=== PATIENT | female | born 1960 | race Caucasian/White ===

== ENCOUNTER 2016-11-08 13:14 | Emergency (ER) | payer OTHER ==
[~2016-11-08] VITALS: Ht 160 cm; Wt 67.5 kg
[~2016-11-08 13:14] MED LIST: ALPRAZOLAM0.5 M1 PO; AMOXICILLIN500 MG PO; BENICAR HCT 401 EACH PO; BYSTOLIC20 MG PO; CARISOPRODOL350 MG PO; CEREFOLIN NAC1 EACH PO; PERCOCET 10/1 TABLET PO; PREVACID15 MG PO; TRAMADOL HCL50 MG PO
[2016-11-08] MEDS ORDERED: ALPRAZOLAM0.5 MG PO (13:55)
[2016-11-08] MEDS ORDERED: LISINOPRIL10 MG PO (13:58)
[2016-11-08] MEDS ORDERED: LEVO-T50 MCG PO (13:59)
[2016-11-08] MEDS ORDERED: TRAJENTA PO (14:02)
[2016-11-08] MEDS ORDERED: TIZANIDINE HCL4 MG PO (14:04)
[2016-11-08] MEDS ORDERED: PREDNISONE20 MG PO (14:29)
[2016-11-08] MEDS ORDERED: INDOCIN25 MG PO (14:29)
[2016-11-08 17:53] VITALS: BP 133/78
== END 2016-11-08 17:55 | disposition home or self-care (01) ==
LOC: EME 13:14 → RME 13:14
DX: M54.42 Lumbago with sciatica, left side (principal); G89.29 Other chronic pain; F17.200 Nicotine dependence, unspecified, uncomplicated
CPT/HCPCS: 99281; 99283; J1885; J3010; J7512

== ENCOUNTER 2016-12-04 10:17 | Emergency (ER) | payer OTHER ==
[~2016-12-04] VITALS: Ht 160 cm; Wt 67.5 kg
[~2016-12-04 10:17] MED LIST changes: +ALPRAZOLAM0.5 MG PO; +INDOCIN25 MG PO; +LEVO-T50 MCG PO; +LISINOPRIL10 MG PO; +PREDNISONE20 MG PO; +TIZANIDINE HCL4 MG PO; +TRAJENTA PO
[2016-12-04 11:07] LABS: HEMATOCRIT 40.4 % (36.0-46.0); MCHC 32.9 G/DL (30.0-36.0); MCV 88.2 FL (83-99); MEAN PLAT.VOLUME 10.2 uM^3 (9.5-12.4); PLATELET COUNT 242 K/uL (156-360); RBC DIS.WIDTH-CV 13.9 % (11.8-14.6); RBC DIS.WIDTH-SD 44.1 % (39-53); RED BLOOD COUNT 4.58 M/uL (3.80-5.20)
[2016-12-04 11:19] LABS: CHLORIDE 106 mEq/L (99-109); POTASSIUM 4.5 mEq/L (3.7-5.4)
[2016-12-04 11:20] LABS: SODIUM 137 mEq/L (136-147)
[2016-12-04 11:22] LABS: GLUCOSE 162 mg/dL (70-99)
[2016-12-04 11:23] LABS: ANION GAP 8 MEQ/L (2-14)
[2016-12-04 11:24] LABS: TOTAL BILIRUBIN 0.4 mg/dL (0.0-1.0)
[2016-12-04 11:25] LABS: ALKALINE PHOSPHATASE 59 IU/L (3-129); GFR ESTIMATE (CALCULATED) > 59 mL/min/
[2016-12-04 11:27] LABS: UREA NITROGEN (BUN) 17 mg/dL (9-23)
[2016-12-04 12:17] LABS: ADD MIUA? YES; BILIRUBIN NEGATIVE; BLOOD SMALL; COLOR YELLOW ((YELLOW)); GLUCOSE (STRIP) NEGATIVE; KETONES NEGATIVE; LEUKOCYTES LARGE; NITRITE NEGATIVE; PROTEIN (STRIP) 30; SPECIFIC GRAVITY 1.019 (1.000-1.030); UROBILINOGEN 0.2 MG/DL (0.2-1.0)
[2016-12-04 12:26] LABS: BACTERIA RARE /HPF; EPITHELIAL CELLS RARE /HPF; HYALINE CASTS 0-5 /LPF; MUCUS TRACE /LPF; RED BLOOD CELLS 30-40 /HPF (0-5); UCUL ADDED? YES; WHITE BLOOD CELLS TNTC /HPF (0-5)
[2016-12-04 12:44] LABS: TROP-I INTERPRETATION NEGATIVE; TROPONIN-I 0.01 ng/mL (0.0-0.30)
[2016-12-04] MEDS ORDERED: KEFLEX500 MG PO (13:31)
[2016-12-04] MEDS ORDERED: LIDOCAINE HCL20 ML MM (13:31)
[2016-12-04 15:01] VITALS: BP 120/75
== END 2016-12-04 15:02 | disposition home or self-care (01) ==
LOC: RME 10:17 → EME 10:17 → RME 15:02
PROVIDERS: Physician Assistant
DX: L30.9 Dermatitis, unspecified (principal); R55 Syncope and collapse; N89.8 Other specified noninflammatory disorders of vagina; I10 Essential (primary) hypertension; F17.200 Nicotine dependence, unspecified, uncomplicated
CPT/HCPCS: 71020; 80053; 81003; 84484; 85027; 87086; 93005; 99281; 99284